=== PATIENT | female | born 1965 | race African-American/Black ===

== ENCOUNTER 2021-07-05 12:38 | Inpatient (IN) ==
[2021-07-05] MEDS ORDERED: SODIUM CHLORIDE 0.9% 1,000 ML IV STA (13:15)
[2021-07-05] MEDS ORDERED: PANTOPRAZOLE 40 MG VIAL IV STA (13:19)
[2021-07-05] MEDS ORDERED: ONDANSETRON 4 MG/2 ML VIAL IV ONE ×2 (13:20→15:49)
[2021-07-05 13:55] LABS: Basophils % 0.4 % (0.0-0.8); Eosinophils # 0.3 10*3/uL (0.0-0.87); Eosinophils % 2.4 % (0.00-10.9); Hematocrit 42.1 VOL% (35.7-47.0); Hemoglobin 14.3 GM/DL (12.0-16.0); Immature Granulocytes % 0.4 %; Immature Granulocytes Absolute 0.04 #; Lymphocytes # 3.5 10*3/uL (1.4-4.0); Lymphocytes % 32.9 % (21.3-54.2); Mean Corpuscular Volume 94.8 FL (87-102); Mean Platelet Volume 9.7 FL (9.6-12.0); Neutrophils % 55.9 % (38.7-73.9); Platelet Count 320 T/CUMM (130-400); Red Blood Count 4.44 MC/CUMM (3.8-5.5); Red Cell Distribution Width 13.5 % (9.3-17.3); White Blood Count 10.6 T/CUMM (4-12)
[2021-07-05 14:25] LABS: Albumin 3.9 G/DL (3.4-5.0); Bilirubin,Total 0.5 MG/DL (0.20-1.00); Calcium 10.4 MG/DL (8.5-10.1); Osmolality,Calculated 278.1 MOS/KG (273-304); Potassium 4.2 MMOL/L (3.5-5.1); Total Protein 7.7 G/DL (6.4-8.2)
[2021-07-05 14:30] LABS: Eosinophils 1 % (0-10); Lymphocytes 35 % (20-55); Platelet Estimate Normal; Segmented Neutrophils 57 % (50-85); Total Cells Counted 100
[2021-07-05 14:31] LABS: Schistocytes Few
[2021-07-05] MEDS ORDERED: HYDROmorphone 2 MG/1 ML VIAL IV STA (15:49)
[2021-07-05] MEDS ORDERED: GLUCAGON 1 MG VIAL IM PRN (16:11)
[2021-07-05] MEDS ORDERED: DEXTROSE 10% 250 ML BAG IV PRN (16:20)
[2021-07-05 16:32] LABS: Bacteria,Urine Occasional /HPF (Few); Mucus,Urine Occasional /LPF (Occasional); Squamous Epithelial Cell,Urine Few /HPF (0-10)
[2021-07-05 16:34] LABS: Urine Appearance Clear (Clear); Urine Color Yellow (Yellow)
[2021-07-05 16:35] LABS: Bilirubin,Urine Negative (Negative); Blood, Urine Trace mg/dL (Negative); Glucose,Urine (UA) >=1000 mg/dL (Negative); Ketones,Urine Trace mg/dL (Negative); Nitrite,Urine Negative (Negative); Protein,Urine Trace MG/DL; Urine Urobilinogen 0.2 EU/DL (<2.0)
[2021-07-05 16:36] LABS: RBC,Urine 4 /HPF (0-4)
[2021-07-05] MEDS: ENOXAPARIN 40 MG/0.4 ML SYRINGE SUBCUT SCH (17:42)
[2021-07-05] MEDS: SODIUM CHLORIDE 0.9% 1,000 ML IV SCH (21:52)
[2021-07-05] MEDS: MORPHINE 4 MG/1 ML VIAL IV PRN (23:23)
[2021-07-06] MEDS: SODIUM CHLORIDE 0.9% 1,000 ML IV SCH ×3 (03:25→21:29)
[2021-07-06 06:58] LABS: Basophils # 0.1 10*3/uL (0.0-0.2); Basophils % 0.7 % (0.0-0.8); Eosinophils # 0.2 10*3/uL (0.0-0.87); Eosinophils % 2.9 % (0.00-10.9); Hematocrit 39.9 VOL% (35.7-47.0); Hemoglobin 13.1 GM/DL (12.0-16.0); Immature Granulocytes % 0.2 %; Immature Granulocytes Absolute 0.02 #; Lymphocytes # 2.9 10*3/uL (1.4-4.0); Lymphocytes % 35.2 % (21.3-54.2); Mean Corpuscular HGB Conc 32.8 GM/DL (32-36); Mean Corpuscular Volume 97.3 FL (87-102); Mean Platelet Volume 10.6 FL (9.6-12.0); Monocytes % 8.2 % (1.7-12.7); Neutrophils % 52.8 % (38.7-73.9); Platelet Count 273 T/CUMM (130-400); Red Cell Distribution Width 13.5 % (9.3-17.3); White Blood Count 8.3 T/CUMM (4-12)
[2021-07-06 07:16] LABS: Albumin 2.8 G/DL (3.4-5.0); Bilirubin,Total 0.4 MG/DL (0.20-1.00); Calcium 9.3 MG/DL (8.5-10.1); Osmolality,Calculated 277.1 MOS/KG (273-304); Potassium 4.4 MMOL/L (3.5-5.1); Risk Ratio 4.81; Thyroid Stimulating Hormone 1.17 uIU/ml (0.358-3.74); Total Protein 6.8 G/DL (6.4-8.2); VLDL Cholesterol 27.6 MG/DL
[2021-07-06] MEDS: ONDANSETRON 4 MG/2 ML VIAL IV PRN (08:28)
[2021-07-06] MEDS: PANTOPRAZOLE 40 MG TABLET PO SCH (08:29)
[2021-07-06] MEDS ORDERED: amLODIPine 10 MG TABLET PO SCH (09:00)
[2021-07-06 09:09] LABS: Atypical Lymphocytes Few; Eosinophils 4 % (0-10); Lymphocytes 29 % (20-55); Segmented Neutrophils 58 % (50-85); Target Cells Few; Total Cells Counted 100
[2021-07-06 09:10] LABS: Anisocytosis 1+; Burr Cells Few; Platelet Estimate Normal; Stomatocytes Few
[2021-07-06] MEDS: ENOXAPARIN 40 MG/0.4 ML SYRINGE SUBCUT SCH (18:01)
[2021-07-06] MEDS ORDERED: INSULIN REGULAR 100 UNIT/ML SUBCUT ONE (20:25)
[2021-07-07 04:40] LABS: Basophils # 0.1 10*3/uL (0.0-0.2); Basophils % 0.7 % (0.0-0.8); Eosinophils # 0.3 10*3/uL (0.0-0.87); Eosinophils % 3.8 % (0.00-10.9); Hematocrit 36.3 VOL% (35.7-47.0); Hemoglobin 12.1 GM/DL (12.0-16.0); Immature Granulocytes % 0.2 %; Immature Granulocytes Absolute 0.02 #; Lymphocytes # 3.1 10*3/uL (1.4-4.0); Lymphocytes % 37.4 % (21.3-54.2); Mean Corpuscular HGB Conc 33.3 GM/DL (32-36); Mean Platelet Volume 9.8 FL (9.6-12.0); Monocytes % 8.8 % (1.7-12.7); Neutrophils % 49.1 % (38.7-73.9); Platelet Count 309 T/CUMM (130-400); Red Blood Count 3.78 MC/CUMM (3.8-5.5); Red Cell Distribution Width 13.1 % (9.3-17.3); White Blood Count 8.2 T/CUMM (4-12)
[2021-07-07 04:52] LABS: Calcium 8.5 MG/DL (8.5-10.1); Osmolality,Calculated 276.5 MOS/KG (273-304); Potassium 3.7 MMOL/L (3.5-5.1)
[2021-07-07] MEDS: SODIUM CHLORIDE 0.9% 1,000 ML IV SCH (05:24)
[2021-07-07] MEDS ORDERED: MAGNESIUM SULF RIDER 2 GM/50 ML PREMIX IV ONE (07:30)
[2021-07-07] MEDS: PANTOPRAZOLE 40 MG TABLET PO SCH (09:43)
[2021-07-07] MEDS: amLODIPine 5 MG TABLET PO SCH (09:43)
[2021-07-07] MEDS: ENOXAPARIN 40 MG/0.4 ML SYRINGE SUBCUT SCH (16:12)
[2021-07-08] MEDS: MORPHINE 4 MG/1 ML VIAL IV PRN ×3 (00:36→23:07)
[2021-07-08 05:26] LABS: Basophils # 0.1 10*3/uL (0.0-0.2); Basophils % 0.7 % (0.0-0.8); Eosinophils # 0.4 10*3/uL (0.0-0.87); Hematocrit 36.3 VOL% (35.7-47.0); Immature Granulocytes % 0.2 %; Immature Granulocytes Absolute 0.02 #; Lymphocytes # 3.3 10*3/uL (1.4-4.0); Lymphocytes % 37.1 % (21.3-54.2); Mean Corpuscular HGB Conc 33.1 GM/DL (32-36); Mean Corpuscular Volume 96.3 FL (87-102); Mean Platelet Volume 10.8 FL (9.6-12.0); Monocytes % 8.6 % (1.7-12.7); Neutrophils % 49.4 % (38.7-73.9); Platelet Count 255 T/CUMM (130-400); Red Blood Count 3.77 MC/CUMM (3.8-5.5); Red Cell Distribution Width 13.3 % (9.3-17.3); White Blood Count 8.8 T/CUMM (4-12)
[2021-07-08 05:38] LABS: Calcium 8.8 MG/DL (8.5-10.1); Potassium 4.8 MMOL/L (3.5-5.1)
[2021-07-08] MEDS: SODIUM CHLORIDE 0.9% 1,000 ML IV SCH ×3 (07:21→08:22)
[2021-07-08] MEDS: amLODIPine 5 MG TABLET PO SCH (08:21)
[2021-07-08] MEDS: PANTOPRAZOLE 40 MG TABLET PO SCH (08:21)
[2021-07-08] MEDS: ONDANSETRON 4 MG/2 ML VIAL IV PRN (08:21)
[2021-07-08] MEDS: DOCUSATE SODIUM 100 MG CAPSULE PO SCH ×2 (11:34→20:46)
[2021-07-08] MEDS: POLYETHYLENE GLYCOL POWDER 17 GM PACK PO SCH (11:34)
[2021-07-08] MEDS: ENOXAPARIN 40 MG/0.4 ML SYRINGE SUBCUT SCH (16:29)
[2021-07-09 05:56] LABS: Albumin 2.9 G/DL (3.4-5.0); Bilirubin,Total 0.5 MG/DL (0.20-1.00); Calcium 8.8 MG/DL (8.5-10.1); Potassium 4.2 MMOL/L (3.5-5.1)
[2021-07-09] MEDS: amLODIPine 5 MG TABLET PO SCH (08:41)
[2021-07-09] MEDS: POLYETHYLENE GLYCOL POWDER 17 GM PACK PO SCH (08:41)
[2021-07-09] MEDS: DOCUSATE SODIUM 100 MG CAPSULE PO SCH (08:41)
[2021-07-09] MEDS: PANTOPRAZOLE 40 MG TABLET PO SCH (08:41)
[2021-07-09] MEDS ORDERED: SODIUM PHOSPHATE ENEMA 133 ML BOTTLE RECTAL ONE (10:10)
[2021-07-09] MEDS ORDERED: BISACODYL 10 MG SUPP RECTAL ONE (12:09)
[2021-07-09 16:20] VITALS: BP 120/69
== END 2021-07-09 16:22 | disposition home or self-care (01) | DRG 440 ==
LOC: N.ED 12:38 → SUATTDRO 16:11 → N.3E 16:11
PROVIDERS: ADMIT Internal Medicine; ATTEND Internal Medicine